=== PATIENT | female | born 1985 | race Caucasian/White ===

== ENCOUNTER 2016-06-16 14:21 | Emergency (ER) | payer MEDICAID ==
[~2016-06-16] VITALS: Ht 162.6 cm; Wt 120.0 kg
[~2016-06-16 14:21] MED LIST: ACET325 PO; ALBU8I INH; FLOV110A INH; IBUP600 PO; METH500T PO; OXYC1SOL5 PO; PERC7.5T13 PO; PRENTAB44 PO
[2016-06-16 14:33] VITALS: BP 126/85; PULSE 78; RESP 12; TEMP 98.1; O2SAT 99
--- NOTE | 2016-06-16 15:06 | PD ---
HPI Chief Complaint: Skin Problem Time Seen by Provider: 15:06 Travel History International Travel<30 days: No Contact w/Intl Traveler<30days: No Traveled to known affect area: No History of Present Illness HPI Patient is a 31-year-old female who presents emergency for evaluation of a lesion to her right hand. She states that it is been there for several months. She reports that feeling more irritated but denies any fevers, chills, foul odor or drainage. Patient is Prydein[place]-speaking, the computer paper goods machine operator was used for the purpose of this examination. Patient states that she tried to get in with her primary doctor but will not be able to have an appointment until next month. PFSH Past Medical History Medical History: Denies Significant Hx ?: Not Family History Family History: Negative Social History Alcohol Use: No Tobacco Use: No Substance Use: No Allergies-Medications (Allergen,Severity, Reaction): Coded Allergies: Aspirin (Verified Allergy, Unknown, 06/16/16) Reported Meds & Prescriptions Reported Meds & Active Scripts Active No Active Prescriptions or Reported Medications Review of Systems Except as stated in HPI: all other systems reviewed are Neg Skin: Positive Lesions Physical Exam Narrative GENERAL: Well-nourished, well-developed patient. SKIN: Warm and dry. 0.5 cm raised, hyperpigmented lesion to the palmar aspect of the right hand just distal to the wrist. HEAD: Normocephalic. EYES: No scleral icterus. No injection or drainage. NECK: Supple, trachea midline. No JVD or lymphadenopathy. CARDIOVASCULAR: Regular rate and rhythm without murmurs, gallops, or rubs. RESPIRATORY: Breath sounds equal bilaterally. No accessory muscle use. GASTROINTESTINAL: Abdomen soft, non-tender, nondistended. MUSCULOSKELETAL: No cyanosis, or edema. 5/5 muscle strength in her lateral upper extremities. Positive radial pulse, brisk less than 3 second capillary refill. Patient is neurovascularly intact. BACK: Nontender without obvious deformity. No CVA tenderness. Data Data Last Documented VS Vital Signs Date Time Temp Pulse Resp B/P Pulse Ox O2 Delivery O2 Flow Rate FiO2 06/16/16 14:33 98.1 78 12 126/85 99 Room Air MDM Medical Decision Making Medical Screen Exam Complete: Yes Emergency Medical Condition: No Medical Record Reviewed: Yes Interpretation(s) Vital Signs Date Time Temp Pulse Resp B/P Pulse Ox O2 Delivery O2 Flow Rate FiO2 06/16/16 14:33 98.1 78 12 126/85 99 Room Air Differential Diagnosis Wart versus abscess versus granuloma versus hemangioma versus other Narrative Course Patient is a 31-year-old female who presents emergency department for evaluation of a lesion to her right hand. An paper goods machine operator was utilized for the purpose of this examination. Patient reports lesion has been there for several months. On exam there are no signs or symptoms of infection. Upon review of medical records. Patient was seen and evaluated approximately one month ago for the same complaint and was told that this is not an emergency and was encouraged to follow-up with her primary doctor at that time. Patient was educated that we do not remove granulomas in the emergency department, this needs to be performed by a hand surgeon or a stock car driver. This was discussed with my attending physician as well. Patient verbalized understanding of these instructions. She was encouraged to keep it covered in an attempt to prevent it from getting irritated. She verbalized understanding of these instructions. A medical screening exam was performed: At the time of evaluation the presenting medical condition was determined not to be of an emergent nature. The patient was given the option of receiving additional care, but declined. Patient was given options for additional community resources from which to obtain care. The Patient Has Been advised to seek medical attention for their presenting complaint. The patient has been advised to return to the ER at any time if an emergent condition develops. Diagnosis Primary Impression: Encounter for medical screening examination Scripts No Active Prescriptions or Reported Meds Condition: Yeimy Tay Jun 16, 2016 15:06
== END 2016-06-16 15:16 | disposition left against medical advice (07) ==
LOC: NEPB 14:21
DX: L98.9 Disorder of the skin and subcutaneous tissue, unspecified (principal)
CPT/HCPCS: 99281

== ENCOUNTER 2016-10-04 20:57 | Emergency (ER) | payer MEDICAID ==
[~2016-10-04] VITALS: Ht 175.3 cm; Wt 136.0 kg
[2016-10-04 21:00] VITALS: BP 144/86; PULSE 80; RESP 18; TEMP 98.5; O2SAT 98
== END 2016-10-04 22:26 | disposition left against medical advice (07) ==
LOC: NED 20:57
DX: Z03.89 Encounter for observation for other suspected diseases and conditions ruled out (principal)
CPT/HCPCS: 99281